=== PATIENT | male | born 1935 | race Hispanic/Latino ===

== ENCOUNTER 2018-11-23 05:48 | Observation (INO) | payer OTHER, MEDICARE ==
[2018-11-20 16:28] LABS: HEMATOCRIT 41.8 % (42-54); LYMPHOCYTES % (AUTO) 24.9 % (21.0-51.0); MEAN CORPUSCULAR HEMOGLOBIN 30.3 pg (27.0-33.0); MEAN CORPUSCULAR HGB CONC 32.7 g/dL (32.0-36.0); MEAN CORPUSCULAR VOLUME 92.8 fL (79-99); MONOCYTES % (AUTO) 8.4 % (3.0-13.0); NEUTROPHILS % (AUTO) 62.7 % (40.0-77.0); PLATELET COUNT (AUTO) 233 K/uL (130-400); RED CELL DISTRIBUTION WIDTH 13.6 % (11.0-15.5)
[2018-11-20 16:34] VITALS: BP 124/74
[2018-11-20 16:39] LABS: CREATININE 1.5 mg/dL (0.5-1.5); POTASSIUM 4.2 mmol/L (3.5-5.1)
[2018-11-20 16:46] LABS: INR 1.01 (0.85-1.15); PARTIAL THROMBOPLASTIN TIME 29.7 SEC (26.3-35.5); PROTHROMBIN TIME 10.6 SEC (9.6-11.6)
[2018-11-20 16:52] LABS: APPEARANCE,URINE Clear (CLEAR); BILIRUBIN,URINE Small (NEGATIVE); COLOR,URINE Dark Yellow (YELLOW); GLUCOSE, URINE (UA) Negative (NEGATIVE); KETONES,URINE Trace mg/dL (NEGATIVE); LEUKOCYTE ESTERASE ,URINE Trace (NEGATIVE); NITRATE,URINE Negative (NEGATIVE); OCCULT BLOOD,URINE Negative (NEGATIVE); PH,URINE 5.5 (5.0-8.0); PROTEIN,URINE Trace mg/dL (NEGATIVE)
[2018-11-20 17:27] LABS: BACTERIA,URINE Few /HPF (None Seen); MUCUS,URINE Moderate LPF (None Seen); RBC,URINE 0-1 /HPF (0-1); SQUAMOUS EPITHELIAL CELL,UR Rare /HPF (0-2)
--- NOTE | 2018-11-22 15:30 | NUR ---
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
[~2018-11-23] VITALS: Ht 165.1 cm; Wt 85.4 kg
[2018-11-23] VITALS (11 sets, daily range): BP systolic 118–147; BP diastolic 79–96
[~2018-11-23 05:48] MED LIST: AMLO5TAB9 PO; ASPI-555 PO; CARB-38 PO; FENO145T37 PO; LOSA25TA41 PO; MIRA50TA PO; OMEP40CA37 PO; PRAV10TA39 PO; SODIUM CHLORIDE 0.9% 500ML 500 ML IV SCH; TAMS-1 PO
--- NOTE | 2018-11-23 06:25 | NUR ---
PRE-PROCEDURE RECEIVED FROM HOME VIA AMBULATING FOR SCHEDULED LHC FOR EXERTIONAL CHEST PAIN ACCOMPANIED BY . AWAKE IN NO ACUTE DISTRESS. DENIES CHEST PAIN. CONNECTED TO CONTINUOUS CARDIOPULMONARY MONITORING. CALL LIGHT W/IN REACH, BED IN LOWEST POSITION, SIDE RAILS UP X2.
[2018-11-23] MEDS ORDERED: SODIUM CHLORIDE 0.9% 1000ML 1,000 ML IV ONE (07:12)
[2018-11-23] MEDS ORDERED: IOHEXOL-350 50ML VIAL IV ONE (08:07)
[2018-11-23] MEDS ORDERED: IOHEXOL 350 MG/ML 100ML INFUS..BTL IV ONE (08:07)
[2018-11-23] MEDS ORDERED: LIDOCAINE HCL 2% 20ML ONE (08:07)
[2018-11-23] MEDS ORDERED: NITROGLYCERIN 5 MG/ML 10 ML VIAL IV ONE (08:07)
--- NOTE | 2018-11-23 08:12 | NUR ---
TACHYCARDIA DR. MARKHAM NOTIFIED OF TRANSIENT TACHYCARDIA 120'S. DENIES CHEST PAIN. HX: ATRIAL FIB. NO ORDERS RECEIVED.
--- NOTE | 2018-11-23 08:15 | NUR ---
ROUNDS DR. MARKHAM IN TO SPEAK WITH PT AND ABOUT PROCEDURE.
--- NOTE | 2018-11-23 08:26 | NUR ---
PROCEDURE TRANSFERRED TO [employer] VIA BED BY RITIKA BARRIOS RN FOR [facility]. AWAKE IN NO ACUTE DISTRESS.
[2018-11-23] MEDS ORDERED: METOPROLOL TARTRATE 1 MG/ML 5ML VIAL IV ONE ×2 (08:49→09:30)
[2018-11-23] MEDS ORDERED: HEPARIN SODIUM 1000UNIT/ML 10ML VIAL ONE (08:58)
[2018-11-23] MEDS ORDERED: IOHEXOL-350 75 ML VIAL IV ONE (09:05)
[2018-11-23] MEDS ORDERED: ASPIRIN 325MG EC TAB 325 MG TABLET.DR PO ONE (09:16)
[2018-11-23] MEDS ORDERED: CLOPIDOGREL BISULFATE 300 MG TAB ONE (09:16)
[2018-11-23] MEDS ORDERED: MORPHINE SULFATE 5 MG/ML VIAL IVP SCH (09:30)
[2018-11-23] MEDS ORDERED: ONDANSETRON HCL 4 MG/2 ML VIAL IVP SCH (09:30)
[2018-11-23] MEDS ORDERED: NITROGLYCERIN 50 MG/D5% WATER 1 BOT IV PRN (09:30)
[2018-11-23] MEDS ORDERED: TEMAZEPAM 30 MG CAP PO PRN (09:30)
[2018-11-23] MEDS ORDERED: ONDANSETRON HCL 4 MG/2 ML VIAL IVP PRN (09:30)
[2018-11-23] MEDS ORDERED: ACETAMINOPHEN-CODEINE 300/30MG TAB PO PRN ×2 (09:30)
--- NOTE | 2018-11-23 09:30 | NUR ---
ROUNDS DR. MARKHAM IN TO SPEAK WITH FAMILY REGARDING FINDINGS ON LHC. EDUCATED PT WILL BE ADMITTED TO ROOM 222. FAMILY GIVEN OPPORTUNITY TO ASK QUESTIONS. QUESTIONS ADDRESSED.
--- NOTE | 2018-11-23 19:45 | NUR ---
ASSESSMENT PT AAOX4. RESTING QUIETLY IN CHAIR WATCHING TV, AT BEDSIDE. RIGHT GROIN DRSG DRY AND INTACT. SOFT, NO HEMATOMA NO BRUISING. (+) PPP. PT UP TO CHAIR. PT ORIENTED TO CALL JUSTINA LOCKWOOD WITHIN REACH. WHITE BOARD UP-DATED. ASSESSMENT COMPLETED, SEE FLOW SHEET
--- NOTE | 2018-11-23 21:20 | NUR ---
DR MANA ADAIR CALLED RE: STATUS UP-DATED. SE ORDERS.
[2018-11-24 00:17] VITALS: BP 113/72
[2018-11-24 03:13] VITALS: BP 126/72
[2018-11-24 03:54] LABS: MEAN CORPUSCULAR HEMOGLOBIN 31.6 pg (27.0-33.0); MEAN CORPUSCULAR HGB CONC 33.8 g/dL (32.0-36.0); MEAN CORPUSCULAR VOLUME 93.4 fL (79-99); PLATELET COUNT (AUTO) 171 K/uL (130-400); RED BLOOD CELL COUNT(AUTO) 4.07 MIL/uL (4.50-6.20); RED CELL DISTRIBUTION WIDTH 13.7 % (11.0-15.5); WHITE BLOOD COUNT (AUTO) 8.9 K/uL (4.8-10.8)
[2018-11-24 04:11] LABS: CREATININE 1.1 mg/dL (0.5-1.5)
[2018-11-24] MEDS ORDERED: PANTOPRAZOLE SODIUM 40 MG TABLET.DR PO ONE (06:06)
[2018-11-24 07:15] VITALS: BP 122/76
[2018-11-24] MEDS ORDERED: PANTOPRAZOLE SODIUM 40 MG TABLET.DR PO SCH (07:30)
--- NOTE | 2018-11-24 08:00 | NUR ---
PT OUT OF BED TO BATHROOM WILL EAT BREAKFAST. RT GROIN DRESSING REMOVED AND SHOWS NO SIGNS OF HEMATOMA OR BLEEDING. NO CHEST PAIN OR SOB
[2018-11-24] MEDS ORDERED: CLOPIDOGREL BISULFATE 75 MG TAB PO SCH (09:00)
[2018-11-24] MEDS ORDERED: ASPIRIN 81MG TAB.CHEW PO SCH (09:00)
[2018-11-24] MEDS ORDERED: LOSARTAN 50 MG TABLET PO SCH (09:16)
[2018-11-24 10:30] VITALS: BP 124/85
--- NOTE | 2018-11-24 10:40 | NUR ---
DR VINH SNEED GAVE TELEPHONE ORDERS FRO DISCHARGE HOME.
[2018-11-24] MEDS ORDERED: AMLODIPINE BESYLATE 5 MG TAB PO SCH (12:00)
--- NOTE | 2018-11-24 12:04 | NUR ---
PT DISCHARGED HOME WITH FAMILY. PRINTED AND VERBAL DISCHARGE INSTRUCTION GIVEN -VERBALIZE UNDERSTANDING. ALSO GIVEN TO HIS DAUGHTER ZOIE . PRESCRIPTION FOR PLAVIX IN HAND. STABLE IN NO DISTRESS
[2018-11-24] MEDS ORDERED: MIRABEGRON 50 MG PO SCH (21:00)
[2018-11-24] MEDS ORDERED: CARBIDOPA PO SCH (21:00)
[2018-11-24] MEDS ORDERED: ATORVASTATIN CALCIUM 10 MG TABLET PO SCH (21:00)
[2018-11-24] MEDS ORDERED: FENOFIBRATE NANOCRYSTALLIZED 145 MG TAB PO SCH (21:00)
[2018-11-24] MEDS ORDERED: LEVODOPA PO SCH (21:00)
[2018-11-25] MEDS ORDERED: TAMSULOSIN HCL 0.4 MG CAP.ER.24H PO SCH (09:00)
[2018-11-25] MEDS ORDERED: PANTOPRAZOLE SODIUM 40 MG TABLET.DR PO SCH (09:00)
== END 2018-11-24 12:15 | disposition home or self-care (01) ==
LOC: DAH 05:48 → DAHIP 05:49 → DAH 05:49 → 2DH 10:07
PROVIDERS: ADMIT Internal Medicine Cardiovascular Disease; ATTEND Internal Medicine Cardiovascular Disease
DX: I25.10 Atherosclerotic heart disease of native coronary artery without angina pectoris (principal); Z79.899 Other long term (current) drug therapy; Z79.01 Long term (current) use of anticoagulants
CPT/HCPCS: 36415 ×3; 71045; 80048 ×2; 80061; 81001; 85025; 85027; 85610; 85730 ×4; 93005 ×3; 93458; 96374; 96375; A4606; C1769; C1876; C1887; C1894; C9600; G0378 ×26; J1644 ×2; J2270; J2405; J3490 ×4; J7030; Q9965; Q9967 ×3